=== PATIENT | female | born 1985 | race Hispanic/Latino ===

== ENCOUNTER 2019-04-21 19:42 | Emergency (ER) | payer SELFPAY ==
[2019-04-21 21:27] LABS: Urine Blood 1+ (NEG); Urine Glucose NEGATIVE (NEG); Urine Protein NEGATIVE (NEG)
[2019-04-21] MEDS ORDERED: ONDANSETRON 4 MG (ODT) TAB ONE (21:58)
--- NOTE | 2019-04-21 22:04 | ER ---
Nurse's Notes [facility] Name: Ju Rodrigez Age: 33 yrs Sex: Female : 1985 Arrival Date: 04/21/2019 Time: 19:45 Bed 19 Private MD: Diagnosis: Person with feared health complaint in whom no diagnosis is made Presentation: 04/21 20:00 Presenting complaint: Patient states: I was drinking a lemonade at [facility] [place] and I thought I was chewing an ice cube but it was glass. On my way home I coughed and there was a little bit of blood. Transition of care: patient was not received from another setting of care. Onset of symptoms was April 21, 2019. Risk Assessment: Do you want to hurt yourself or someone else? Patient reports no desire to harm self or others. Initial Sepsis Screen: Does the patient meet any 2 criteria? No. Patient's initial sepsis screen is negative. Does the patient have a suspected source of infection? No. Patient's initial sepsis screen is negative. Care prior to arrival: None. 20:00 Method Of Arrival: Ambulatory la1 20:00 Acuity: MIGUELITO 3 la1 Triage Assessment: 20:02 General: Appears in no apparent distress. uncomfortable, Behavior is calm, cooperative, cc3 appropriate for age. Pain: Denies pain. 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 - Social history:: Smoking status: Patient/guardian denies using tobacco. - Ebola Screening: : No symptoms or risks identified at this time. Screenin:02 Abuse screen: Denies threats or abuse. Denies injuries from another. Nutritional cc3 screening: No deficits noted. Tuberculosis screening: No symptoms or risk factors identified. Fall Risk Ambulatory Aid- None/Bed Rest/Nurse Assist (0 pts). Gait- Normal/Bed Rest/Wheelchair (0 pts) Mental Status- Oriented to own ability (0 pts). Assessment: 20:02 General: Appears in no apparent distress. uncomfortable, Behavior is calm, cooperative, cc3 appropriate for age. Pain: Denies pain. Neuro: Level of Consciousness is awake, alert, obeys commands, Oriented to person, place, time, situation, Appropriate for age. Cardiovascular: Denies chest pain, Capillary refill < 3 seconds Patient's skin is warm and dry. Respiratory: Airway is patent Respiratory effort is even, unlabored, Respiratory pattern is regular, symmetrical. GI: Abdomen is round non-distended. : No signs and/or symptoms were reported regarding the genitourinary system. EENT: No signs and/or symptoms were reported regarding the EENT system. Derm: Skin is intact, is healthy with good turgor, Skin is pink, warm \T\ dry. normal. Musculoskeletal: Circulation, motion, and sensation intact. Range of motion: intact in all extremities. 20:30 Reassessment: Patient refuses an IV cannula, bloodworks and IV medications, PA Page cc3 informed and he said he'll change his order of CT scan to no IV contrast. 21:12 Reassessment: Patient appears in no apparent distress at this time. Patient and/or cc3 family updated on plan of care and expected duration. Pain level reassessed. Patient is alert, oriented x 3, equal unlabored respirations, skin warm/dry/pink. Patient denies pain at this time. 22:10 Reassessment: Patient appears in no apparent distress at this time. Patient and/or cc3 family updated on plan of care and expected duration. Pain level reassessed. Patient is alert, oriented x 3, equal unlabored respirations, skin warm/dry/pink. PA Page discharged the patient home, no prescription given. No IV cannula in situ. Patient left ER vitally stable and ambulatory with her family. No valuables left in the patient's room. Patient denies pain at this time. Patient states feeling better. Patient states symptoms have improved. Vital Signs: 20:02 BP 114 / 54; Pulse 73; Resp 16; Temp 97.1; Pulse Ox 98% on R/A; Weight 72.57 kg; Height la1 5 ft. 3 in. (160.02 cm); 21:30 BP 112 / 57; Pulse 75; Resp 15 S; Pulse Ox 99% on R/A; cc3 22:06 BP 115 / 54; Pulse 71; Resp 16 S; Pulse Ox 98% on R/A; cc3 20:02 Body Mass Index 28.34 (72.57 kg, 160.02 cm) la1 ED Course: 19:45 Patient arrived in ED. es 20:02 Triage completed. la1 20:02 Kaylyn Parks is Primary Nurse. cc3 20:02 Arm band placed on left wrist. la1 20:02 Patient has correct armband on for positive identification. Bed in low position. Call cc3 light in reach. Side rails up X 1. Pulse ox on. NIBP on. 20:03 Deshawn Stratton PA is PHCP. cp 20:03 Jad Perdomo MD is Attending Physician. cp 20:49 Radiology exam delayed due to test not completed at this time. vm2 20:59 Radiology exam delayed due to test not completed at this time. vm2 21:17 XRAY Chest (1 view) In Process Unspecified. EDMS 21:28 CT Abd/Pelvis - Without Contrast In Process Unspecified. EDMS 22:10 No provider procedures requiring assistance completed. Patient did not have IV access cc3 during this emergency room visit. Administered Medications: 20:44 Not Given (Patient Refused): ProTONIX 40 mg IVP once cc3 20:45 Not Given (Patient Refused): NS 0.9% 1000 ml IV at 1 bolus Per protocol; 1000 mL bolus cc3 20:45 Not Given (Patient Refused): Zofran 4 mg IVP once; over 2 minutes cc3 22:00 Drug: Zofran 4 mg Route: PO; cc3 22:10 Follow up: Response: No adverse reaction; Nausea is decreased cc3 Outcome: 22:03 Discharge ordered by . cp 22:10 Discharged to home ambulatory, with family. cc3 22:10 Condition: stable 22:10 Discharge instructions given to patient, Instructed on discharge instructions, follow up and referral plans. Demonstrated understanding of instructions, follow-up care. 22:12 Patient left the ED. cc3 Signatures: Dispatcher [employer] EDIA Nallely Rand Lee, DAYANA RN la1 Deshawn Stratton PA PA cp McGuire, Victoria vm2 Kaylyn Parks cc3
--- NOTE | 2019-04-21 22:04 | EDPHYS ---
Physician Documentation [facility] Name: Ju Rodrigez Age: 33 yrs Sex: Female : 1985 Arrival Date: 04/21/2019 Time: 19:45 Bed 19 Private MD: ED Physician Jad Perdomo HPI: 04/21 20:35 This 33 yrs old Female presents to ER via Ambulatory with complaints of cp injested glass. 20:35 The patient or guardian reports the patient has a suspected foreign body, that has been cp ingested. The reported likely foreign body is a fragment of glass. Onset: The symptoms/episode began/occurred just prior to arrival. Current symptoms: coughing, pain, in the epigastric area. Treatment Prior to Arrival: none. Patient reports she was drinking lemonade at [employer] when she noticed glass fragments in glass. When she bit down on what she thought was ice, felt like piece of glass. 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 - Social history:: Smoking status: Patient/guardian denies using tobacco. - Ebola Screening: : No symptoms or risks identified at this time. ROS: 20:35 Constitutional: Negative for body aches, chills, fever, poor PO intake. cp 20:35 Eyes: Negative for injury, pain, redness, and discharge. cp 20:35 ENT: Negative for drainage from ear(s), ear pain, sore throat, difficulty swallowing, difficulty handling secretions. 20:35 Cardiovascular: Negative for chest pain, palpitations. 20:35 Respiratory: Positive for cough, with no reported sputum, Negative for shortness of breath, wheezing. 20:35 Abdomen/GI: Positive for abdominal pain, nausea, of the epigastric area, Negative for vomiting, diarrhea, constipation, black/tarry stool, rectal bleeding. 20:35 Back: Negative for pain at rest, pain with movement, radiated pain. 20:35 : Negative for urinary symptoms. 20:35 Skin: Negative for rash. 20:35 Neuro: Negative for altered mental status, headache, weakness. 20:35 All other systems are negative. Exam: 20:45 Constitutional: The patient appears in no acute distress, alert, awake, non-toxic, well cp developed, well nourished, anxious. 20:45 Head/Face: Normocephalic, atraumatic. cp 20:45 Eyes: Periorbital structures: appear normal, Conjunctiva: normal, no exudate, no injection, Sclera: no appreciated abnormality, Lids and lashes: appear normal, bilaterally. 20:45 ENT: External ear(s): are unremarkable, Nose: is normal, Mouth: Lips: moist, Oral mucosa: pink and intact, moist, Posterior pharynx: is normal, airway is patent, no erythema, no exudate. 20:45 Neck: ROM/movement: is normal, is supple, without pain, no range of motions limitations, no nuchal rigidity. 20:45 Chest/axilla: Inspection: normal, Palpation: is normal, no crepitus, no tenderness. 20:45 Cardiovascular: Rate: normal, Rhythm: regular. 20:45 Respiratory: the patient does not display signs of respiratory distress, Respirations: normal, no use of accessory muscles, no retractions, no splinting, no tachypnea, labored breathing, is not present, Breath sounds: are clear throughout, no decreased breath sounds, no stridor, no wheezing. 20:45 Abdomen/GI: Inspection: abdomen appears normal, Bowel sounds: active, all quadrants, Palpation: soft, in all quadrants, mild abdominal tenderness, in the epigastric area, rebound tenderness, is not appreciated, voluntary guarding, is not appreciated, involuntary guarding, is not appreciated. 20:45 Back: pain, is absent, ROM is normal. 20:45 Skin: no rash present. 20:45 Neuro: Orientation: to person, place \T\ time. Mentation: is normal, Motor: moves all fours, strength is normal, Sensation: is normal. Vital Signs: 20:02 BP 114 / 54; Pulse 73; Resp 16; Temp 97.1; Pulse Ox 98% on R/A; Weight 72.57 kg; Height la1 5 ft. 3 in. (160.02 cm); 21:30 BP 112 / 57; Pulse 75; Resp 15 S; Pulse Ox 99% on R/A; cc3 22:06 BP 115 / 54; Pulse 71; Resp 16 S; Pulse Ox 98% on R/A; cc3 20:02 Body Mass Index 28.34 (72.57 kg, 160.02 cm) la1 MDM: 20:03 Patient medically screened. cp 22:03 Data reviewed: vital signs, nurses notes, radiologic studies, CT scan, plain films. cp 22:03 Test interpretation: by ED physician or midlevel provider: chest xray negative for cp foreign body. Counseling: I had a detailed discussion with the patient and/or guardian regarding: the historical points, exam findings, and any diagnostic results supporting the discharge/admit diagnosis, radiology results, to return to the emergency department if symptoms worsen or persist or if there are any questions or concerns that arise at home. Response to treatment: the patient's symptoms have markedly improved after treatment, and as a result, I will discharge patient. Refusal of service: The patient/guardian displays adequate decision making capability and despite a detailed discussion of alternatives, benefits, risks, and consequences refuses: all lab tests. ED course: VSS. CT abdomen/pelvis negative for perforation or foreign body. 04/21 21:02 Order name: Urine Dipstick--Ancillary (enter results); Complete Time: 21:50 [facility] 04/21 20:32 Order name: XRAY Chest (1 view) 04/21 20:42 Order name: CT Abd/Pelvis - Without Contrast 04/21 21:02 Order name: Urine --Ancillary (enter results); Complete Time: 21:50 [facility] 04/21 21:50 Interpretation: Reviewed. 04/21 20:32 Order name: Urine Dipstick-Ancillary (obtain specimen); Complete Time: 21:02 04/21 20:32 Order name: Urine Test (obtain specimen); Complete Time: 21:02 cp Administered Medications: 20:44 Not Given (Patient Refused): ProTONIX 40 mg IVP once cc3 20:45 Not Given (Patient Refused): NS 0.9% 1000 ml IV at 1 bolus Per protocol; 1000 mL bolus cc3 20:45 Not Given (Patient Refused): Zofran 4 mg IVP once; over 2 minutes cc3 22:00 Drug: Zofran 4 mg Route: PO; cc3 22:10 Follow up: Response: No adverse reaction; Nausea is decreased cc3 Disposition: 04/21/19 22:03 Discharged to Home. Impression: Person with feared health complaint in whom no diagnosis is made. - Condition is Stable. - Discharge Instructions: Swallowed Foreign Body, Adult. - Medication Reconciliation Form, Thank You Letter, Antibiotic Education, Prescription Opioid Use form. - Follow up: Emergency Department; When: As needed; Reason: Worsening of condition. - Problem is new. - Symptoms have improved. Addendum: 04/23/2019 01:52 Co-signature as Attending Physician, Jad Perdomo MD I agree with the assessment and t w4 plan of care. Signatures: Dispatcher [employer] EDOR Jareth Martini RN RN la1 Deshawn Stratton PA PA Jad Arias MD MD tw4 Kaylyn Parks cc3 Corrections: (The following items were deleted from the chart) 04/21 20:45 20:32 IV Saline Lock ordered. cc3 20:45 20:32 Labs collected and sent ordered. cc3 20:54 20:34 Abdomen Pelvis W Con+CT.RAD.BRZ ordered. [facility] EDOR 22:12 22:03 04/21/2019 22:03 Discharged to Home. Impression: Person with feared health cc3 complaint in whom no diagnosis is made. Condition is Stable. Forms are Medication Reconciliation Form, Thank You Letter, Antibiotic Education, Prescription Opioid Use. Follow up: Emergency Department; When: As needed; Reason: Worsening of condition. Problem is new. Symptoms have improved. cp
--- NOTE | 2019-04-22 08:48 | RAD REPORT ---
EXAM DESCRIPTION: RAD - Chest Single View - 04/21/2019 9:15 pm CLINICAL HISTORY: Cough, possible foreign body COMPARISON: None. TECHNIQUE: AP portable chest image was obtained 2 hours . FINDINGS: Lungs are clear. Heart and vasculature are normal. No measurable pleural effusion and no p neumothorax. No acute bony abnormality seen. No acute aortic findings. No radiopaque foreign body kane ntifiable. No free air under the diaphragm. IMPRESSION: No acute cardiopulmonary process.
--- NOTE | 2019-04-24 11:14 | RAD REPORT ---
EXAM DESCRIPTION: CT - Abdomen Pelvis Wo Contrast - 04/22/2019 3:08 am CLINICAL HISTORY: Epigastric pain. Ingestion of a piece of glass. TECHNIQUE: CT scan of the abdomen and pelvis was performed without intravenous contrast. 5 mm axial images were obtained along with 3 mm coronal and sagittal reformatted images. DOSE OPTIMIZATION: This facility uses dose optimization techniques as appropriate to perform exams, including at least one of the following techniques: 1. Automated exposure control. 2. Adjustment of the mA and/or kV according to patient size (this includes techniques or standardized protocols for targeted exams where dose is matched to the indication/reason for exam, i.e. extremiti es or head). 3. Use of iterative reconstructive technique. INTRAVENOUS CONTRAST: None. ORAL CONTRAST: None. COMPARISON: None. FINDINGS: Lung Bases: Normal. Liver: Normal. Spleen: Normal. Pancreas: Normal. Gallbladder: Nondistended.. Adrenal Glands: Normal. Kidneys: Normal. Retroperitoneal Structures: Normal. Bowel Survey: The stomach is moderately distended with food debris. No radiopaque foreign bodies identified. There is increased stool identified throughout the colon. The distal ileum is unremarkable. The appendix is unremarkable. Uterus and Adnexa: There is a left ovarian cyst measuring 1.7 x 1.7 cm. Urinary Bladder: Normal. Peritoneal Cavity: There is a small amount of free fluid in the posterior pelvic cul-de-sac which ext ends up to the left ovary. Mesenteric Structures: Normal. Abdominal Wall: No hernia. Bony Structures: No suspicious lesions. IMPRESSION: 1. Moderately severe gaseous distention with food debris. 2. Increased stool throughout the colon. 3. Findings suggestive of a left ovarian cyst rupture. 4. No radiopaque foreign body. Electronically signed by: Jos Gates MD 04/21/2019 9:40 PM CDT Due to temporary technical issues with the PACS/Fluency reporting system, reports are being signed by the in house radiologist as a courtesy to ensure prompt reporting. The interpreting radiologist is f ully responsible for the content of the report.
== END 2019-04-21 22:12 | disposition home or self-care (01) ==
LOC: ER 19:42
DX: Z71.1 Person with feared health complaint in whom no diagnosis is made (principal)
CPT/HCPCS: 71045; 74176; 81003; 81025; 99283